=== PATIENT | female | born 1960 | race Two or more races ===

== ENCOUNTER 2018-10-27 08:01 | Emergency (ER) | payer OTHER ==
[~2018-10-27] VITALS: Ht 172.7 cm; Wt 68.0 kg
[2018-10-27 08:01] VITALS: BP 124/74
[2018-10-27] MEDS ORDERED: IBUPROFEN 600 MG TABLET PO ONE ×2 (08:43→09:00)
[2018-10-27] MEDS ORDERED: ACETAMINOPHEN ES 500 MG TABLET ONE (08:43)
--- NOTE | 2018-10-27 08:53 | NUR ---
Patient discharged to home in stable condition. Written and verbal after care instructions given. Patient verbalizes understanding of instruction.
[2018-10-27] MEDS ORDERED: ACETAMINOPHEN 325 MG TABLET PO ONE (09:00)
== END 2018-10-27 08:54 | disposition home or self-care (01) ==
LOC: ER 08:04
DX: S92.252A Displaced fracture of navicular [scaphoid] of left foot, initial encounter for closed fracture (principal); F32.9 Major depressive disorder, single episode, unspecified; W01.0XXA Fall on same level from slipping, tripping and stumbling without subsequent striking against object, initial encounter; Y93.K1 Activity, walking an animal; Y92.89 Other specified places as the place of occurrence of the external cause; Y99.8 Other external cause status
CPT/HCPCS: 29125; 73110; 99283; A4606; Z7610

== ENCOUNTER 2020-06-01 11:23 | Emergency (ER) | payer OTHER ==
[~2020-06-01] VITALS: Ht 172.7 cm; Wt 70.8 kg
--- NOTE | 2020-06-01 11:50 | NUR ---
Patient came in to the er c/o scalp hematoma s/p slip and fall last night. denies KO. On room air, breathing evenly and unlabored. connected to the monitor and pulse ox. kept comfortable, will cotninue to monitor accordingly.
--- NOTE | 2020-06-01 11:54 | NUR ---
wheeled patient via rney for ct scan
--- NOTE | 2020-06-01 12:05 | NUR ---
patient came back from ct
[2020-06-01 12:21] VITALS: BP 121/77
--- NOTE | 2020-06-01 12:22 | NUR ---
Patient discharged to home in stable condition. Written and verbal after care instructions given. Patient verbalizes understanding of instruction.
== END 2020-06-01 12:21 | disposition home or self-care (01) ==
LOC: ER 11:23
DX: S00.03XA Contusion of scalp, initial encounter (principal); F32.9 Major depressive disorder, single episode, unspecified; W01.0XXA Fall on same level from slipping, tripping and stumbling without subsequent striking against object, initial encounter; Y93.89 Activity, other specified; Y92.89 Other specified places as the place of occurrence of the external cause; Y99.8 Other external cause status
CPT/HCPCS: 70450-TC

== ENCOUNTER 2020-07-03 13:03 | Emergency (ER) | payer OTHER ==
[~2020-07-03] VITALS: Ht 172.7 cm; Wt 70.3 kg
[2020-07-03 13:08] VITALS: BP 123/8
--- NOTE | 2020-07-03 13:15 | NUR ---
SEEN AND EXAMINED BY .
--- NOTE | 2020-07-03 13:18 | NUR ---
CORROSION ENGINEER AT BEDSIDE FOR XRAY.
--- NOTE | 2020-07-03 13:50 | NUR ---
FRANKLIN GARCÍA APPLIED BY [employer].
== END 2020-07-03 13:52 | disposition home or self-care (01) ==
LOC: ER 13:05
DX: S43.51XA Sprain of right acromioclavicular joint, initial encounter (principal); R42 Dizziness and giddiness; K21.9 Gastro-esophageal reflux disease without esophagitis; W01.0XXA Fall on same level from slipping, tripping and stumbling without subsequent striking against object, initial encounter; Y93.89 Activity, other specified; Y92.091 Bathroom in other non-institutional residence as the place of occurrence of the external cause; Y99.8 Other external cause status
CPT/HCPCS: 73030-TC

== ENCOUNTER 2020-12-21 19:50 | Inpatient (IN) | payer OTHER ==
[~2020-12-21] VITALS: Ht 172.7 cm; Wt 72.1 kg
--- NOTE | 2020-12-21 20:00 | NUR ---
BIBRA 102 FROM HOME FOR C/O AN EPISODE OF SHARP , STABBING MID STERNAL CP RADIATIN TO THE BACK WHICH DID NOT LAST LONG AND RELIEVED BY ITSELF. PT A, OX4, WITH NO C/O PAIN OR DISCOMFORT AT THIS TIME. - SOB. PT AMBULATORY TO BED 3, WAS PLACED ON A MONITOR . NOTED W/ A SLIGHT HIGH BP W/ NO HX OF HTN. WILL CONT TO MONITOR
--- NOTE | 2020-12-21 20:03 | NUR ---
EMT AT BED SIDE FOR EKG, WORKFLOW DEVELOPER AT BED SIDE
[2020-12-21 20:08] LABS: BASOPHILS # (AUTO) 0.1 /CMM (0.0-0.2); EOSINOPHILS % (AUTO) 1.6 % (0.0-6.0); HEMATOCRIT 43 % (33-45); HEMOGLOBIN 14.6 g/dL (11.5-14.8); LYMPHOCYTES # (AUTO) 2.7 /CMM (0.8-4.8); LYMPHOCYTES % (AUTO) 38.7 % (20.0-44.0); MEAN CORPUSCULAR HGB CONC 34 g/dl (31.0-36.0); MEAN CORPUSCULAR VOLUME 97 fL (82-100); MONOCYTES # (AUTO) 0.8 /CMM (0.1-1.30); MONOCYTES % (AUTO) 11.1 % (2.0-12.0); NEUTROPHILS # (AUTO) 3.3 /CMM (1.8-8.9); NEUTROPHILS % (AUTO) 47.6 % (43.0-81.0); PLATELET COUNT (AUTO) 258 /CMM (150-450); RED BLOOD CELL COUNT(AUTO) 4.44 MIL/uL (4.0-5.2); WHITE BLOOD COUNT (AUTO) 6.9 K/uL (4.3-11.0)
--- NOTE | 2020-12-21 20:13 | NUR ---
DR WADSWORTH AT BED SIDE
--- NOTE | 2020-12-21 20:18 | NUR ---
X RAY AT BED SIDE
[2020-12-21 20:20] LABS: CALCIUM, SERUM 9.3 mg/dL (8.5-10.1); CREATININE 0.9 mg/dL (0.6-1.3); POTASSIUM 3.1 mmol/L (3.5-5.1)
[2020-12-21] MEDS ORDERED: ASPIRIN 325 MG TABLET ONE (20:40)
[2020-12-21] MEDS ORDERED: ASPIRIN 325 MG TABLET PO ONE (21:00)
[2020-12-21] MEDS ORDERED: ZOLPIDEM TARTRATE 5 MG TABLET PO PRN (21:00)
[2020-12-21] MEDS ORDERED: ONDANSETRON HCL/PF 4 MG/2 ML VIAL IVP PRN (21:00)
[2020-12-21] MEDS ORDERED: POTASSIUM CHLORIDE 20 MEQ TAB.PRT.SR PO ONE ×2 (21:00→21:48)
[2020-12-21] MEDS ORDERED: Z GUARD REMEDY 2 OZ OINT TP PRN (21:00)
[2020-12-21] MEDS ORDERED: ACETAMINOPHEN 325 MG TABLET PO PRN (21:00)
[2020-12-21] MEDS ORDERED: MAGNESIUM HYDROXIDE 30 ML UDC PO PRN (21:00)
[2020-12-21] MEDS ORDERED: HYDROCODONE/APAP 5/325MG TABLET ONE (21:41)
[2020-12-21] MEDS: HYDROCODONE/APAP 5/325MG TABLET PO PRN (21:43)
[2020-12-21] MEDS ORDERED: ATORVASTATIN 10 MG TABLET ONE (21:48)
--- NOTE | 2020-12-21 21:59 | NUR ---
REPORT GIVEN TO MICHAEL ALVAREZ FOR JERARDO.
[2020-12-21] MEDS ORDERED: ATORVASTATIN 10 MG TABLET PO SCH (22:00)
[2020-12-21 22:15] VITALS: BP 154/99
[2020-12-21] MEDS ORDERED: TEMAZEPAM 15 MG CAPSULE PO PRN (23:00)
[2020-12-21 23:11] VITALS: BP 154/99
[2020-12-21] MEDS: LISINOPRIL (5MG) 5 MG TABLET PO SCH (23:20)
[2020-12-21 23:24] LABS: BILIRUBIN,URINE Negative (NEGATIVE); COLOR,URINE YELLOW (YELLOW); LEUKOCYTE ESTERASE ,URINE Negative (NEGATIVE); NITRITE, URINE Negative (NEGATIVE); PROTEIN,URINE Negative (NEGATIVE); UGLUCOSE Negative (NEGATIVE); UROBILINOGEN,URINE 0.2 EU/dL (0.2)
[2020-12-22] VITALS: BP 153/94
[2020-12-22 02:13] LABS: BASOPHILS # (AUTO) 0.1 /CMM (0.0-0.2); BASOPHILS % (AUTO) 1.2 % (0.0-2.0); HEMATOCRIT 41 % (33-45); HEMOGLOBIN 13.8 g/dL (11.5-14.8); LYMPHOCYTES # (AUTO) 1.7 /CMM (0.8-4.8); LYMPHOCYTES % (AUTO) 31.2 % (20.0-44.0); MEAN CORPUSCULAR HGB CONC 34 g/dl (31.0-36.0); MEAN CORPUSCULAR VOLUME 97 fL (82-100); MONOCYTES # (AUTO) 0.5 /CMM (0.1-1.30); MONOCYTES % (AUTO) 10.3 % (2.0-12.0); NEUTROPHILS % (AUTO) 56.3 % (43.0-81.0); PLATELET COUNT (AUTO) 233 /CMM (150-450); WHITE BLOOD COUNT (AUTO) 5.3 K/uL (4.3-11.0)
[2020-12-22 02:15] LABS: CREATININE 0.8 mg/dL (0.6-1.3); MAGNESIUM 1.8 mg/dL (1.8-2.4); PHOSPHORUS 3.8 mg/dL (2.5-4.9); POTASSIUM 4.1 mmol/L (3.5-5.1)
[2020-12-22 04:00] VITALS: BP 131/91
--- NOTE | 2020-12-22 04:37 | NUR ---
ENDING NOTES: ALERT AND ORIENTATED X4 SHE IS ANXIOUS. C/O SHARP PAINS STAB HER CHEST, AND SHE IS AFRAID IT COULD BE HER HEART. HER B/P IS 154/99 STARTED ON LISINOPRIL THIS NIGHT. EXPLAINED TO HER THAT THE NURSE ANESTHETIST WILL SEE HER IN THE AM. EXPLAINED TO HER THAT AN ECHO IS ORDERED AND WHAT THIS SHOULD SHOW. REASSURED HER SHE DID THE RIGHT THING COMING INTO THE HOSPITAL.HER 1ST TROP WAS 0.055 2ND TROP 0.065 SATS 99 -100% ROOM AIR. NPO AFTER MIDNIGHT. MATTEO CRISTINA HER TO SEE PT 2230 AFTER COMING FROM THE ER LAST NIGHT.. THRU THE NIGHT SHE SHOWED SR ON THE MONITOR. C/O EARLIER OF FEET CRAMPING NOTED HER K+ LEVEL WAS LO IN THE ER AND THEY REPLACED THE K+.SLEEPING PILL GIVEN AMBIEN AND EFFECTIVE DILAN JONNIE IS AWARE OF THE FFEET CRAMPING. NO NAUSEA NO VOMITING NO H/A SKIN WARM AND DRY THRU THE NIGHT BY THIS AM 4AM VITALS B/B131/92 HR 78 SR ON THE MONITOR REMAINS NPO TO BE SEEN BYTHE CARDIO THIS AM
[2020-12-22 05:02] VITALS: BP 131/91
[2020-12-22] MEDS ORDERED: PANTOPRAZOLE 40 MG TABLET.DR PO SCH (07:30)
--- NOTE | 2020-12-22 07:30 | NUR ---
RN OPENINGN OTE PT LAYING IN BED SEMIFOWLERSA/Ox4, ON RA, SPO2 97%, NO SIGNS OF RESP DISTRESS OR SOB. PT C/O CHEST PAIN 6/10 WITH PRESSURE AFTER GETTING U PTO USE RESTROOM, WILL ADMIN PAIN MED ORDERED IMMEDIATELY, NEGATIVE FOR ARM NUMBNESS, SOB, N/V/D, DIAPHORESIS; NO OTHER S/S. PT SKIN INTACT. LT AC #20 IS FLUSHED, PATENT, SL WITH NO SIGNS OF INFECTION OR INFILTRATION. PT HAS HIGH BP, WILL ADMIN MEDS ORDERED, DR RIVERA ORDERED CT ANGIO OF HEART, WILL HAVE CONSENTS SIGNED SHORTLY. WILL F/U WITH PT REGARDING CHEST PAIN AFTER ADMIN OF PAIN MEDS. 2ND TROP I LEVEL @ 0200 TODAY 0.065. ALL PT SAFETY PRECAUTIONS IN PLACE, WILL CONT TO MONITOR
[2020-12-22 08:00] VITALS: BP 157/91
[2020-12-22] MEDS: METOPROLOL TARTRATE 50 MG TABLET PO SCH ×2 (08:30→09:00)
[2020-12-22] MEDS: LISINOPRIL (5MG) 5 MG TABLET PO SCH (08:30)
[2020-12-22] MEDS: HYDROCODONE/APAP 5/325MG TABLET PO PRN (08:31)
[2020-12-22] MEDS ORDERED: ASPIRIN EC 81 MG TABLET.DR PO SCH (09:00)
[2020-12-22] MEDS ORDERED: CHOLECALCIFEROL 1,000 UNIT TABLET (VIT D3) PO SCH (09:00)
[2020-12-22] MEDS ORDERED: IOHEXOL-350 100 ML VIAL IV ONE ×2 (09:01→09:43)
[2020-12-22] MEDS ORDERED: NITROGLYCERIN 0.4 MG/TAB BOTTLE ONE (09:01)
[2020-12-22] MEDS ORDERED: IV NS 0.9% 250 ML IV ONE (09:02)
[2020-12-22] MEDS ORDERED: METOPROLOL TARTRATE INJ 5 MG/5 ML AMPUL ONE ×5 (09:02→09:38)
[2020-12-22] MEDS ORDERED: CT SWABBABLE VALVE TRANS SET 1 EA INFUS.SET MC ONE (09:02)
[2020-12-22] MEDS: METOPROLOL TARTRATE INJ 5 MG/5 ML AMPUL IVP PRN ×10 (09:20→10:05)
[2020-12-22] MEDS ORDERED: NITROGLYCERIN 0.4 MG/TAB BOTTLE SL ONE (09:30)
[2020-12-22] MEDS ORDERED: OMEP40CA13 PO (09:52)
[2020-12-22] MEDS ORDERED: ZOLP5TAB8 PO (09:52)
--- NOTE | 2020-12-22 10:00 | NUR ---
ANTONIO NOTE PT LEFT FOR CT ANGIO OF HEART IN STABLE CONDITION, PT HAS RETURNED IN STABLE CONDITION Addendum: 12/22/20 at 1012 by ROBER TABARES RN PER RN REPORT, 50MG METOPROLOL IV PUSH AND 0.4MG NITRO SL GIVEN
--- NOTE | 2020-12-22 10:07 | NUR ---
POST CTA PROCEDURE WELL TOLERATED FAITH THE PT. AAOX4, NOT IN RESPIRATORY DISTRESS, V/S STABLE, KEPT RESTED AND COMFORTABLE. WILL CONTINUE TO MONITOR. REPORT GIVEN TO ANTONIO ECHAVARRIA FOR JERARDO.
[2020-12-22 12:00] VITALS: BP 114/79
[2020-12-22] MEDS ORDERED: ASPI-1420 PO (12:15)
--- NOTE | 2020-12-22 13:35 | NUR ---
SS NOTE: SW spoke to ANTONIO Aparicio regarding a request for consult. ANTONIO Aparicio mentioned there is no current need for consult and patient will be discharged back to her home today.
--- NOTE | 2020-12-22 14:15 | NUR ---
rn note pt discharged in medically stable condition. all pt education conducted with pt understanding
== END 2020-12-22 14:15 | disposition home or self-care (01) | DRG 305 ==
LOC: ER 19:51 → TELE 21:21
PROVIDERS: ADMIT Nurse Practitioner Acute Care; ATTEND Registered Nurse
DX: I16.0 Hypertensive urgency (principal); R07.89 Other chest pain; E87.6 Hypokalemia; I10 Essential (primary) hypertension; F41.9 Anxiety disorder, unspecified; K21.9 Gastro-esophageal reflux disease without esophagitis; F32.9 Major depressive disorder, single episode, unspecified; Z72.89 Other problems related to lifestyle; I34.0 Nonrheumatic mitral (valve) insufficiency; Z20.822 Contact with and (suspected) exposure to COVID-19
CPT/HCPCS: 36415; 71045-TC; 75574; 80048-TC; 80061-TC; 83735-TC; 84100-TC; 84484-TC; 85025-TC; 87081-TC; 93307-TC; C9803; G0378; J3490; J7050; Q9967

== ENCOUNTER 2021-09-18 12:58 | Emergency (ER) | payer OTHER ==
[~2021-09-18] VITALS: Ht 177.8 cm; Wt 68.0 kg
[~2021-09-18 12:58] MED LIST: ASPI-1420 PO; OMEP40CA21 PO; ZOLP5TAB8 PO
[2021-09-18 13:22] VITALS: BP 145/83
--- NOTE | 2021-09-18 13:35 | NUR ---
BLOOD COLLECTED AND GIVEN TO LAB
--- NOTE | 2021-09-18 13:45 | NUR ---
WAITING IN [facility] IN A SITING POSITION WITH DOG FOR ER BED,NO APPARENT CHANGE IN CONDITION
--- NOTE | 2021-09-18 14:14 | NUR ---
GOT OUT OF LYLY SAYING "I'M GETTING OUT OF HERE,I'M GOING HOME", AMBULATED TO THE DOOR WITH HER DOG,STEADY GAIT.
== END 2021-09-18 14:32 | disposition left against medical advice (07) ==
LOC: ER 13:02
DX: F10.129 Alcohol abuse with intoxication, unspecified (principal); Z98.890 Other specified postprocedural states; Z79.899 Other long term (current) drug therapy; Z79.82 Long term (current) use of aspirin; Y90.9 Presence of alcohol in blood, level not specified

== ENCOUNTER 2021-10-07 21:26 | Emergency (ER) | payer OTHER ==
[~2021-10-07] VITALS: Ht 167.6 cm; Wt 68.0 kg
--- NOTE | 2021-10-07 22:00 | NUR ---
PATIENT BIB[employer] C/O SI WITH PLAN TO OVERDOSE ON PILLS. PT STARTED DRINKING. PLACED ON HOLD BE [employer]. PATIENT IS A/O X 4, RR EVEN AND UNLABORED, NO SOB NOTED. PATIENT BELONGINGS COLLECTED, PT PLACED IN HOSPITAL GOWN. PATIENT WELL KEEP, SKIN INTACT, WITH STEADY GAIT. PATIENT PLACED IN ER BED 14, SITTER AT BEDSIDE. WILL CONTINUE TO MONITOR.
--- NOTE | 2021-10-08 02:15 | NUR ---
CALLED [facility] FOR RESULTS NOT ETA.
--- NOTE | 2021-10-08 03:50 | NUR ---
CARRIER HAS NOT PICKED UP LABS
[2021-10-08 07:16] LABS: BASOPHILS # (AUTO) 0.1 K/uL (0.0-0.2); BASOPHILS % (AUTO) 1.3 % (0.0-2.0); EOSINOPHILS % (AUTO) 1.2 % (0.0-6.0); HEMATOCRIT 39 % (33-45); HEMOGLOBIN 12.8 g/dL (11.5-14.8); LYMPHOCYTES # (AUTO) 1.3 K/uL (0.8-4.8); LYMPHOCYTES % (AUTO) 33.7 % (20.0-44.0); MEAN CORPUSCULAR HGB CONC 33 g/dl (31.0-36.0); MEAN CORPUSCULAR VOLUME 105 fL (82-100); MONOCYTES # (AUTO) 0.4 K/uL (0.1-1.30); MONOCYTES % (AUTO) 9.6 % (2.0-12.0); NEUTROPHILS # (AUTO) 2.1 K/uL (1.8-8.9); NEUTROPHILS % (AUTO) 54.2 % (43.0-81.0); PLATELET COUNT (AUTO) 358 K/uL (150-450); RED BLOOD CELL COUNT(AUTO) 3.67 MIL/uL (4.0-5.2); WHITE BLOOD COUNT (AUTO) 3.8 K/uL (4.3-11.0)
--- NOTE | 2021-10-08 07:55 | NUR ---
PATIENT EATING BREAKFAST
[2021-10-08 07:57] LABS: BILIRUBIN,URINE SMALL (NEGATIVE); COLOR,URINE DARK YELLOW (YELLOW); LEUKOCYTE ESTERASE ,URINE TRACE (NEGATIVE); NITRITE, URINE NEGATIVE (NEGATIVE); PROTEIN,URINE 30 mg/dl (NEGATIVE); UGLUCOSE NEGATIVE (NEGATIVE)
[2021-10-08] MEDS ORDERED: HYDROCODONE/APAP 5/325MG TABLET ONE ×2 (09:11→19:06)
[2021-10-08] MEDS ORDERED: HYDROCODONE/APAP 5/325MG TABLET PO ONE ×2 (09:30→19:30)
[2021-10-08 10:18] LABS: BACTERIA,URINE Few /HPF (None Seen); RBC,URINE 0-2 /HPF (0-2); SQUAMOUS EPITHELIAL CELL,UR Moderate /HPF (None Seen); WBC,URINE 0-3 /HPF (0-3)
[2021-10-08 12:09] LABS: ALBUMIN 3.9 g/dL (3.4-5.0); BILIRUBIN,DIRECT 0.2 mg/dL (0.0-0.2); BILIRUBIN,TOTAL 0.5 mg/dL (0.2-1.0); CALCIUM, SERUM 8.4 mg/dL (8.5-10.1); CREATININE 0.9 mg/dL (0.6-1.3); POTASSIUM 3.4 mmol/L (3.5-5.1)
--- NOTE | 2021-10-08 14:45 | NUR ---
SAMUEL RN CALLED FOR PSYCH EVAL. ETA 30 MINS.
--- NOTE | 2021-10-08 15:27 | NUR ---
CLINICIAN AT BEDSIDE
--- NOTE | 2021-10-08 17:00 | NUR ---
ROBINSON FROM [facility] CALLED. UNABLE TO TAKE PATIENT DUE TO HER NEEDED TO WEAR A SLING.
--- NOTE | 2021-10-08 20:46 | NUR ---
PT USED RESTROOM, NEEDS MET
--- NOTE | 2021-10-09 01:15 | NUR ---
PT SLEEPING, BREATHING EVENLY AND UNLABORED, ATTACHED TO MONITOR
--- NOTE | 2021-10-09 07:26 | NUR ---
ROSINA, DAUGHTER, , WANTS A CALL TO PICKUP OR WITH UPDATE
--- NOTE | 2021-10-09 08:18 | NUR ---
THE PATIENT IS RECEIVED IN ER BED #14. ALERT AND ORIENTED X3. DENIES PAIN. IN ROOM AIR AN DENIES SOB. RESPIRATION REGULAR AND UNLABORED. THE PATIENT IS CALM AND COOPERATIVE. WILL CONTINUE TO MONITOR THE PATIENT.
--- NOTE | 2021-10-09 11:42 | NUR ---
CALLED [facility] ALL BED ARE FULL AND NO DISCHARGES ANTICIPATED FOR TODAY NOR TONIGHT PER SANDI [phone]
--- NOTE | 2021-10-09 12:04 | NUR ---
facesheet, clinicals, copy of eligibility re faxed to [facility].
--- NOTE | 2021-10-09 12:07 | NUR ---
called [facility] adis will not take patient due to insurance coverage.
--- NOTE | 2021-10-09 12:20 | NUR ---
[facility] called back. insurance is ok. will review the case.
--- NOTE | 2021-10-09 13:50 | NUR ---
[facility] CALLED FOR CRISIS EVAL. ETA 1 HOUR.
--- NOTE | 2021-10-09 15:43 | NUR ---
[facility] JESSY URIAS [phone]
--- NOTE | 2021-10-09 16:12 | NUR ---
ROSINA [phone] DAUGHTER WILLING TO [employer] SPECIALIST PT.
--- NOTE | 2021-10-09 16:45 | NUR ---
TRIED TO CONTACT [facility] GRANT COORDINATOR, NO ANSWER. MESSAGE LEFT FOR FOLLOW UP.
--- NOTE | 2021-10-09 18:09 | NUR ---
CALLED PATIENTS [facility] [phone] PAGING RADIO [place].
--- NOTE | 2021-10-09 18:09 | NUR ---
[facility] AT BEDSIDE FOR CRISIS EVAL.
[2021-10-09] MEDS ORDERED: LORAZEPAM 1 MG TABLET PO ONE (19:00)
[2021-10-09] MEDS ORDERED: LORAZEPAM 1 MG TABLET ONE (19:17)
--- NOTE | 2021-10-09 19:29 | NUR ---
REPORT GIVEN TO NURSE TORRE FOR JERARDO
--- NOTE | 2021-10-09 20:14 | NUR ---
Patient discharged to home in stable condition. Written and verbal after care instructions given. Patient and patients daughter verbalizes understanding of instruction.
[2021-10-09 20:15] VITALS: BP 131/73
== END 2021-10-09 20:15 | disposition home or self-care (01) ==
LOC: ER 21:34
DX: R45.851 Suicidal ideations (principal); J45.909 Unspecified asthma, uncomplicated; Z20.822 Contact with and (suspected) exposure to COVID-19
CPT/HCPCS: 36415 ×2; 80048; 80076; 80143; 80307; 80320 ×2; 81001; 85025; 87426; 99285; C9803; G0480